=== PATIENT | female | born 1995 | race Caucasian/White ===

== ENCOUNTER 2016-09-14 11:38 | Emergency (ER) | payer OTHER ==
[2016-09-14 12:07] VITALS: BP 117/74
--- NOTE | 2016-09-14 12:51 | EDM.PDOC ---
[id number] Complaint: feel leg pain [id number] Time Seen by Provider: 09/14/16 12:51 Source of Information: Reports: Patient, RN Notes Reviewed History Limitations: Reports: No Limitations - History of Present Illness INITIAL COMMENTS - FREE TEXT/NARRATIVE: Complaining of right knee pain sustained yesterday from ground level fall. Today patient woke to find pain and swelling had worsened. Patient has history of bone cancer and treatment, status post right femur shaft excision and graft with a repeat bone graft last month. Denies any other injuries. Quality: Reports: Ache Severity: Moderate Improves with: Reports: None Worsens with: Reports: None Associated Symptoms: Reports: No Other Symptoms Right Leg Pain Score (Numeric/FACES): 4 - Related Data Allergies Allergy/AdvReac Type Severity Reaction Status Date / Time No Known Allergies Allergy Verified 09/14/16 12:22 Home Meds: Home Meds . [No Known Home Meds] 09/14/16 [History] Citalopram Hydrobromide [Celexa] 10 mg PO DAILY 09/14/16 [History] Zolpidem Tartrate [Ambien] 5 mg PO BEDTIME 09/14/16 [History] Past Medical History Psychiatric History: Reports: Anxiety Oncologic (Cancer) History: Reports: Bone - Past Surgical History Musculoskeletal Surgical History: Reports: Other (See Below) Other Musculoskeletal Surgeries/Procedures:: bone graft to the right femur Social & Family History - Family History Family Medical History: Noncontributory - Tobacco Use Smoking Status *Q: Never Smoker Second Hand Smoke Exposure: No - Caffeine Use Caffeine Use: Reports: Coffee, Tea - Recreational Drug Use Recreational Drug Use: No Review of Systems - Review of Systems Review Of Systems: ROS reveals no pertinent complaints other than HPI. ED EXAM, GENERAL - Physical Exam Exam: See Below Exam Limited By: No Limitations General Appearance: Alert, WD/WN, No Apparent Distress Nose: Normal Inspection, Normal Mucosa, No Blood Respiratory/Chest: No Respiratory Distress Cardiovascular: Normal Peripheral Pulses Back Exam: Normal Inspection, Full Range of Motion, NT Extremities: Other (righta nterior knee with small tender bruise. Tenderness to palpation of right knee medial and lateral joint lines. No effusion. ) Neurological: Alert, Oriented, CN II-XII Intact, Normal Cognition, Normal Gait, Normal Reflexes, No Motor/Sensory Deficits Psychiatric: Normal Affect, Normal Mood Course - Vital Signs Last Recorded V/S: Last Vital Signs Temp 36.8 C 09/14/16 12:05 Pulse 108 H 09/14/16 12:05 Resp 20 09/14/16 12:05 BP 117/74 09/14/16 12:05 Pulse Ox 99 09/14/16 12:05 - Orders/Labs/Meds Orders: Active Orders 24 hr Category Date Time Status Femur Min 2V Rt [CR] Stat Exams 09/14/16 12:14 Taken Knee 3V Rt [CR] Urgent Exams 09/14/16 12:14 Ordered - Radiology Interpretation Free Text/Narrative:: X-ray femur: Per rad report there is a graft with internal fixation plate involving the mid-distal femur. There is some heterotopic bone formation, however lucency at the proximal graft site suggests incomplete fusion. No lucency to suggest hardware loosening or acute fracture. Departure - Departure Time of Disposition: 12:59 Disposition: Home, Self-Care 01 Condition: good Clinical Impression: Sprain of knee Contusion of knee, right Qualifiers: Encounter type: initial encounter Qualified Code(s): S80.01XA - Contusion of right knee, initial encounter - Discharge Information Instructions: Knee Sprain, [id number] Forms: ED Department Discharge Additional Instructions: Rest, ice pack and elevate right knee as needed. Use crutches or cane as needed for comfort. Follow with your orthopedist in the next 10 days to 2 weeks for recheck. - My Orders Last 24 Hours: My Active Orders 09/14/16 12:14 Femur Min 2V Rt [CR] Stat Knee 3V Rt [CR] Urgent - Assessment/Plan Last 24 Hours: My Active Orders 09/14/16 12:14 Femur Min 2V Rt [CR] Stat Knee 3V Rt [CR] Urgent
== END 2016-09-14 13:14 | disposition home or self-care (01) ==
LOC: DL.ED 11:38
DX: S83.91XA Sprain of unspecified site of right knee, initial encounter (principal); Z79.899 Other long term (current) drug therapy; W19.XXXA Unspecified fall, initial encounter
CPT/HCPCS: 99284